=== PATIENT | female | born 1950 | race Caucasian/White ===

== ENCOUNTER 2017-04-03 13:14 | Day surgery (SDC) | payer BC ==
[~2017-04-03 13:14] MED LIST: Lactated Ringers 1,000 ML IV SCH; Midazolam 1 MG/ML 2 ML SDV ONE; Propofol 200 MG/20 ML SDV ONE; Sodium Chloride 0.9% 10 ML Syringe FLUSH PRN; Sodium Chloride 0.9% 2.5 ML Syringe FLUSH PRN; fentaNYL 100 MCG/2 ML SDV ONE
--- NOTE | 2017-04-03 13:39 | PCM.PREANE ---
Preanesthetic Assessment - Anesthesia/Transfusion/Family Hx Anesthesia History: Prior Anesthesia Without Reaction Family History of Anesthesia Reaction: No Transfusion History: No Prior Transfusion(s) - Review of Systems General: No Symptoms Pulmonary: No Symptoms Cardiovascular: No Symptoms Gastrointestinal: No Symptoms Neurological: No Symptoms Other: Reports: None - Physical Assessment NPO Status Date: 04/02/17 (CL this am) Height: 1.61 m Weight: 96.162 kg ASA Class: 2 Mental Status: Alert & Oriented x3 Airway Class: Mallampati = 1 Dentition: Reports: Normal Dentition (veneers on all teeth maxillary and mandibular) ROM/Head Extension: Full Lungs: Clear to Auscultation, Normal Respiratory Effort Cardiovascular: Regular Rate, Regular Rhythm - Allergies Allergies/Adverse Reactions: Allergies Allergy/AdvReac Type Severity Reaction Status Date / Time Sulfa (Sulfonamide Allergy Swelling Verified 03/31/17 14:31 Antibiotics) - Anesthesia Plan Pre-Op Medication Ordered: None - Acknowledgements Anesthesia Type Planned: MAC Pt an Appropriate Candidate for the Planned Anesthesia: Yes Alternatives and Risks of Anesthesia Discussed w Pt/Guardian: Yes Pt/Guardian Understands and Agrees with Anesthesia Plan: Yes PreAnesthesia Questionnaire HEENT History: Reports: Allergic Rhinitis, Cataract, Retinal Detachment Cardiovascular History: Reports: Blood Clots/VTE/DVT, High Cholesterol, Hypertension Other Cardiovascular History: blood clot to rt leg in 1982 Respiratory History: Reports: Sleep Apnea Gastrointestinal History: Reports: GERD Genitourinary History: Reports: None 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: Reports: Endometriosis Musculoskeletal History: Reports: Arthritis, Back Pain, Chronic, Fracture Other Musculoskeletal History: hx fx ankle Neurological History: Reports: None Psychiatric History: Reports: Anxiety, Depression Endocrine/Metabolic History: Reports: Hypothyroidism, Obesity/BMI 30+ Hematologic History: Reports: None Immunologic History: Reports: None Oncologic (Cancer) History: Reports: Thyroid - Infectious Disease History Infectious Disease History: Reports: Chicken Pox, Influenza, Measles, Mumps - Past Surgical History Head Surgeries/Procedures: Reports: None HEENT Surgical History: Reports: Adenoidectomy, Naso-Sinus Surgery, Tonsillectomy Other HEENT Surgeries/Procedures: repair of retinal detachment GI Surgical History: Reports: Cholecystectomy, Colonoscopy, Polypectomy Female Surgical History: Reports: None Endocrine Surgical History: Reports: Thyroidectomy Neurological Surgical History: Reports: Lumbar Spine Other Neurological Surgeries/Procedures: hx spinal arthrodesis Other Musculoskeletal Surgeries/Procedures:: spinal surg. - SUBSTANCE USE Smoking Status *Q: Never Smoker Recreational Drug Use History: No - HOME MEDS Home Medications: Home Meds Cetirizine HCl [Zyrtec] 1 tab PO DAILY 11/06/15 [History] FLUoxetine [PROzac] 1 tab PO DAILY 11/06/15 [History] Krill/Om-3/DHA/EPA/Phospho/Ast [Krill Oil 500 mg Softgel] 1 tab PO DAILY [History] Levothyroxine Sodium [Synthroid] 100 mcg PO DAILY 11/06/15 [History] Triamterene/Hydrochlorothiazid [Triamterene-HCTZ 37.5-25 MG] 1 tab PO DAILY 03/13 [History] Ubidecarenone [COQ-10] 100 mg PO DAILY 11/06/15 [History] Cholecalciferol (Vitamin D3) [Vitamin D3] 1,000 units PO DAILY 03/31/17 [History ] Estradiol [Estring] 1 device VAG ASDIRECTED 03/31/17 [History] Fluticasone Propionate [Flonase Allergy Relief] 1 spray NASBOTH ASDIRECTED PRN 03/31/17 [History] Lansoprazole [Prevacid] 30 mg PO DAILY 03/31/17 [History] Lutein/Minerals/Vit A,C & E [Ocuvite] 1 tab PO DAILY 03/31/17 [History] amLODIPine [Norvasc] 5 mg PO DAILY 03/31/17 [History] - CURRENT (IN HOUSE) MEDS Current Meds: Current Medications Lactated Ringer's (Ringers, Lactated) 1,000 mls @ 125 mls/hr IV ASDIRECTED [place] Sodium Chloride (Saline Flush) 10 ml FLUSH ASDIRECTED PRN PRN Reason: Keep Vein Open Sodium Chloride (Saline Flush) 2.5 ml FLUSH ASDIRECTED PRN PRN Reason: Keep Vein Open Sodium Chloride (Saline Flush) 10 ml FLUSH ASDIRECTED PRN PRN Reason: Keep Vein Open Sodium Chloride (Saline Flush) 2.5 ml FLUSH ASDIRECTED PRN PRN Reason: Keep Vein Open Discontinued Medications Fentanyl (Sublimaze) Confirm Administered Dose 100 mcg .ROUTE .STK-MED ONE Stop: 04/03/17 08:24 Midazolam HCl (Versed 1 Mg/Ml) Confirm Administered Dose 2 mg .ROUTE .STK-MED ONE Stop: 04/03/17 08:24 Propofol (Diprivan 20 Ml) Confirm Administered Dose 200 mg .ROUTE .STK-MED ONE Stop: 04/03/17 08:24
[2017-04-03] MEDS ORDERED: Propofol 200 MG/20 ML SDV ONE (13:59)
--- NOTE | 2017-04-03 14:24 | PCM.OPNOTE ---
- General Post-Op/Procedure Note Date of Surgery/Procedure: 04/03/17 Operative Procedure(s): Screening colonoscopy Findings: Diverticulosis, grade 1 hemorrhoids Pre Op Diagnosis: History of colon polyp Post-Op Diagnosis: Diverticulosis, grade 1 hemorrhoids Anesthesia Technique: ALIICA Primary Surgeon: Mary Avalos Condition: Good Free Text/Narrative:: Intake & Output 04/02/17 04/03/17 04/03/17 22:59 06:59 14:59 Intake Total 550 Balance 550
[2017-04-03 15:20] VITALS: BP 138/79
--- NOTE | 2017-04-03 15:23 | PCM48HPAN ---
Post Anesthesia Note - EVALUATION WITHIN 48HRS OF ANESTHETIC Vital Signs in Normal Range: Yes Patient Participated in Evaluation: Yes Respiratory Function Stable: Yes Airway Patent: Yes Cardiovascular Function Stable: Yes Hydration Status Stable: Yes Pain Control Satisfactory: Yes Nausea and Vomiting Control Satisfactory: Yes Mental Status Recovered: Yes
--- NOTE | 2017-04-03 15:23 | PCM.POSTAN ---
POST ANESTHESIA ASSESSMENT - MENTAL STATUS Mental Status: Alert, Oriented - RESPIRATORY Respiratory Status: Respiratory Rate WNL, Airway Patent, O2 Saturation Stable - CARDIOVASCULAR CV Status: Pulse Rate WNL, Blood Pressure Stable - GASTROINTESTINAL GI Status: No Symptoms - POST OP HYDRATION Hydration Status: Adequate & Stable
--- NOTE | 2017-04-03 18:58 | OR ---
SURGEON: MARY AVALOS MD DATE OF PROCEDURE: 04/03/2017 PREOPERATIVE DIAGNOSIS: Screening colonoscopy, history of colon polyps. POSTOPERATIVE DIAGNOSIS: Diverticulosis, grade 1 hemorrhoids. PROCEDURE PERFORMED: Colonoscopy. ENDOSCOPIST: Mary Avalos MD. INSTRUMENT USED: Olympus colonoscope. EXTENT OF EXAM: To the cecum. ANESTHESIA: MAC. PREPARATION: Good. LIMITATIONS: None. INDICATION FOR EXAMINATION: The patient is a 66-year-old female, who had a colonoscopy performed 5 years ago. She was found to have 2 small tubular adenomas. She is here for a repeat colonoscopy. The patient and I discussed the procedure, expected perioperative course, and risks including bleeding, infection, or perforation. The patient verbalized understanding and wishes to proceed. PROCEDURE IN DETAIL: The patient was brought into the endoscopy suite and placed in a left lateral decubitus position. A time-out was completed verifying the patient's name, age, date of , allergies, and procedure to be performed. Monitored anesthesia care was induced and continuous oxygen was provided via nasal cannula. After adequate sedation was achieved, a digital rectal exam was performed. This exam was within normal limits. A well lubricated colonoscope was inserted into the rectum and advanced under direct visualization to the level of the cecum. The cecum was identified by both visual and anatomic landmarks. A photograph was taken of the cecal cap. The scope was then fully withdrawn while examining the color, texture, anatomy, and integrity of the mucosa from the cecum to the anal canal. The patient was noted to have diverticulosis. The scope was then brought into the rectum and retroflexed to allow visualization of the anal canal opening. The patient was found to have grade 1 internal hemorrhoids. A photograph was taken. The scope was then straightened out and removed from the patient. The cecum to anus time was 8 minutes. The patient tolerated the procedure well and was taken to PACU in stable condition. ENDOSCOPIC DIAGNOSES: 1. Diverticulosis. 2. Grade 1 hemorrhoids. RECOMMENDATIONS: Follow up in clinic in 2 weeks. CHRIS MARSHALL /[id number]
== END 2017-04-03 14:40 | disposition home or self-care (01) ==
LOC: MW.SDS 13:14
PROVIDERS: ATTEND Surgery
DX: Z12.11 Encounter for screening for malignant neoplasm of colon (principal); F32.9 Major depressive disorder, single episode, unspecified; E78.00 Pure hypercholesterolemia, unspecified; I10 Essential (primary) hypertension; K21.9 Gastro-esophageal reflux disease without esophagitis; M19.90 Unspecified osteoarthritis, unspecified site; E89.0 Postprocedural hypothyroidism; E66.9 Obesity, unspecified; H26.9 Unspecified cataract; K57.30 Diverticulosis of large intestine without perforation or abscess without bleeding; K64.0 First degree hemorrhoids; Z86.010 Personal history of colon polyps; Z88.2 Allergy status to sulfonamides; Z79.899 Other long term (current) drug therapy; Z86.718 Personal history of other venous thrombosis and embolism; Z85.850 Personal history of malignant neoplasm of thyroid; Z90.49 Acquired absence of other specified parts of digestive tract; Z90.89 Acquired absence of other organs; Z98.890 Other specified postprocedural states; Z68.30 Body mass index [BMI] 30.0-30.9, adult; Z98.1 Arthrodesis status
CPT/HCPCS: 45378; J2250; J3010; J7120; 00810; J2704

== ENCOUNTER 2017-10-14 06:48 | Emergency (ER) | payer MEDICARE, OTHER ==
[2017-10-14] MEDS ORDERED: Sodium Chloride 0.9% 2.5 ML Syringe FLUSH PRN (07:27)
[2017-10-14] MEDS ORDERED: Sodium Chloride 0.9% 10 ML Syringe FLUSH PRN (07:27)
--- NOTE | 2017-10-14 07:32 | EDM.PDOC ---
ED HPI GENERAL MEDICAL PROBLEM - General Chief Complaint: Upper Extremity Injury/Pain Stated Complaint: RIGHT ARM IS NUMBNESS Time Seen by Provider: 10/14/17 07:20 - History of Present Illness INITIAL COMMENTS - FREE TEXT/NARRATIVE: HISTORY AND PHYSICAL: History of present illness: The patient is a 67-year-old female who follows with Dr. Tuan Benoit at [facility], and who saw him on September 29 for routine physical which she said was within normal limits, and has a history of hypertension hypercholesterolemia and hypothyroidism, and presents with complaints of right upper extremity numbness and pain that has been ongoing for the last 1 week. Patient says she has been doing a lot more activity, cleaning a motor home, over the last 1 week and each morning she has been awakening to discomfort in her right upper extremity which is the entire extremity and tingling and numbness. She says she doesn't feel weak but there is pain to the arm and normally will go away quickly but today it lasted 1 hour so she came in for evaluation. On my evaluation she says it is improving and it is almost gone at this point. Patient says she notes some swelling when she wakes up but it is not significant and there is no color changes. The patient denies any chest pain shortness of breath abdominal pain nausea vomiting headache or neck pain. The patient says she has a history of "bulging disks in her neck" which have not caused her any discomfort nor has she had any treatment for them recently. The patient is right-hand dominant. She has had no recent trauma to her neck or upper extremity. She says that her right shoulder has been sore after she has been doing this cleaning work but the numbness tingling and discomfort is only in the mornings and improves as the morning progresses. As the symptoms started after she saw Dr. Vaughan she did not discuss them with him. The patient otherwise has been eating and drinking normally and has no other systemic complaints. Again the patient says the symptoms are improving and arm was completely gone when I see her. Patient tells me she Completely has no symptoms on the left upper extremity and no symptoms on her face trunk or lower extremities. Review of systems: As per history of present illness and below otherwise all systems reviewed and negative. Past medical history: As per history of present illness and as reviewed below otherwise noncontributory. Surgical history: As per history of present illness and as reviewed below otherwise noncontributory. Social history: No reported history of drug or alcohol abuse. Family history: As per history of present illness and as reviewed below otherwise noncontributory. Physical exam: General: Well-developed well-nourished mildly overweight female who is nontoxic and speaking clearly and easily in the ED. HEENT: Atraumatic, normocephalic, pupils reactive, negative for conjunctival pallor or scleral icterus, mucous membranes moist, throat clear, neck supple, nontender, trachea midline. There are no midline step-offs tenderness defects of the cervical spine and no reproducible muscular tenderness on palpation of the neck musculature or posterior shoulder. Lungs: Clear to auscultation, breath sounds equal bilaterally, chest nontender. Heart: S1S2, regular, negative for clicks, rubs, or JVD. Abdomen: Soft, nondistended, nontender. Negative for masses or hepatosplenomegaly. Negative for costovertebral tenderness. Pelvis: Stable nontender. Genitourinary: Deferred. Rectal: Deferred. Extremities: Atraumatic, negative for cords or calf pain. Neurovascular unremarkable. There is full range of motion of the right upper extremity but there is discomfort with palpation of the trigger point and with engagement of the shoulder joint which she says reproduces discomfort. There is no swelling noted in the right upper extremity and all compartments are soft. There are no color changes no rashes no lesions and pulses are strong in the radial and ulnar pulses bilaterally with palpation. Cap refill is normal. Neuro: Awake, alert, oriented. Cranial nerves II through XII unremarkable. Cerebellum unremarkable. Motor and sensory unremarkable throughout. Exam nonfocal. Diagnostics: EKG CBC CMP magnesium level CT scan of the head and cervical spine, arterial Doppler ultrasound right upper extremity Therapeutics: Toradol 0935: Case was discussed with Dr. Tuan Benoit who agrees that I will give the patient a prescription for an outpatient MRI of the C-spine and he can follow those test results up. I will also give the patient diclofenac for pain as well as a Medrol Dosepak. I will give her strict advice on following up with Dr. Vaughan as well as reasons to return to the ED and need to schedule the MRI. The patient is aware of all testing results and care plan for outpatient MRI and Medrol Dosepak with diclofenac. Impression: Episodic right upper extremity pain and paresthesia, improving Definitive disposition and diagnosis as appropriate pending reevaluation and review of above. right arm Pain Score (Numeric/FACES): 9 - Related Data Allergies Allergy/AdvReac Type Severity Reaction Status Date / Time Sulfa (Sulfonamide Allergy Anaphylactic Verified 10/14/17 06:53 Antibiotics) Shock Home Meds: Home Meds FLUoxetine HCl [Fluoxetine] 1 tab PO DAILY 10/14/17 [History] Lansoprazole [Heartburn Treatment 24 Hour] 1 cap PO DAILY 10/14/17 [History] Lansoprazole [Prevacid] 1 cap PO DAILY 10/14/17 [History] Levothyroxine Sodium [Synthroid] 100 mg PO DAILY 10/14/17 [History] Rosuvastatin [Crestor] 1 mg PO DAILY 10/14/17 [History] Triamterene/Hydrochlorothiazid [Triamterene-HCTZ 37.5-25 MG] 1 cap PO DAILY [History] amLODIPine Besylate [Norvasc] 5 mg PO DAILY 10/14/17 [History] amLODIPine [Norvasc] 5 mg PO DAILY 10/14/17 [History] Past Medical History HEENT History: Reports: None Cardiovascular History: Reports: High Cholesterol, Hypertension Respiratory History: Reports: None Gastrointestinal History: Reports: None Genitourinary History: Reports: None 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 Musculoskeletal History: Reports: None Neurological History: Reports: None Psychiatric History: Reports: None Endocrine/Metabolic History: Reports: Other (See Below) Other Endocrine/Metabolic History: thyroid cancer Hematologic History: Reports: None Immunologic History: Reports: None Oncologic (Cancer) History: Reports: Thyroid Dermatologic History: Reports: None - Infectious Disease History Infectious Disease History: Reports: Chicken Pox, Mumps - Past Surgical History Head Surgeries/Procedures: Reports: None HEENT Surgical History: Reports: None Cardiovascular Surgical History: Reports: None Respiratory Surgical History: Reports: None GI Surgical History: Reports: None Female Surgical History: Reports: None Endocrine Surgical History: Reports: Thyroidectomy Neurological Surgical History: Reports: None Musculoskeletal Surgical History: Reports: None Oncologic Surgical History: Reports: None Dermatological Surgical History: Reports: None Social & Family History - Family History Family Medical History: Noncontributory - Tobacco Use Smoking Status *Q: Never Smoker Second Hand Smoke Exposure: No - Caffeine Use Caffeine Use: Reports: Coffee, Soda, Tea - Recreational Drug Use Recreational Drug Use: No Review of Systems - Review of Systems Review Of Systems: ROS reveals no pertinent complaints other than HPI. ED EXAM, GENERAL - Physical Exam Exam: See Below (See dictation) Course - Vital Signs Last Recorded V/S: Last Vital Signs Temp 36.0 C 10/14/17 06:57 Pulse 69 10/14/17 09:49 Resp 18 10/14/17 09:49 BP 135/85 10/14/17 09:49 Pulse Ox 98 10/14/17 09:49 - Orders/Labs/Meds Orders: Active Orders 24 hr Category Date Time Status Cardiac Monitoring [RC] . DIRECTED Care 10/14/17 07:27 Active EKG Documentation Completion [RC] STAT Care 10/14/17 07:27 Active Oxygen Therapy, ED [RC] ASDIRECTED Care 10/14/17 07:27 Active Pulse Oximetry [RC] ASDIRECTED Care 10/14/17 07:27 Active Sodium Chloride 0.9% [Saline Flush] Med 10/14/17 07:27 Active 10 ml FLUSH ASDIRECTED PRN Sodium Chloride 0.9% [Saline Flush] Med 10/14/17 07:27 Active 2.5 ml FLUSH ASDIRECTED PRN Saline Lock Insert [OM.PC] Stat Oth 10/14/17 07:27 Ordered Medication Orders Sodium Chloride (Saline Flush) 10 ml FLUSH ASDIRECTED PRN PRN Reason: Keep Vein Open Sodium Chloride (Saline Flush) 2.5 ml FLUSH ASDIRECTED PRN PRN Reason: Keep Vein Open Labs: Laboratory Tests 10/14/17 10/14/17 Range/Units 06:58 06:58 WBC 6.33 (4.0-11.0) K/uL RBC 4.09 L (4.30-5.90) M/uL Hgb 12.1 (12.0-16.0) g/dL Hct 35.6 L (36.0-46.0) % MCV 87.0 (80.0-98.0) fL MCH 29.6 (27.0-32.0) pg MCHC 34.0 (31.0-37.0) g/dL RDW Std Deviation 44.1 (28.0-62.0) fl RDW Coeff of Roman 14 (11.0-15.0) % Plt Count 228 (150-400) K/uL MPV 9.80 (7.40-12.00) fL Neut % (Auto) 29.6 L (48.0-80.0) % Lymph % (Auto) 58.9 H (16.0-40.0) % [place] % (Auto) 7.3 (0.0-15.0) % Eos % (Auto) 3.6 (0.0-7.0) % Baso % (Auto) 0.6 (0.0-1.5) % Neut # (Auto) 1.9 (1.4-5.7) K/uL Lymph # (Auto) 3.7 H (0.6-2.4) K/uL [place] # (Auto) 0.5 (0.0-0.8) K/uL Eos # (Auto) 0.2 (0.0-0.7) K/uL Baso # (Auto) 0.0 (0.0-0.1) K/uL Nucleated RBC % 0.0 /100WBC Nucleated RBCs # 0 K/uL Sodium 141 (136-145) mmol/L Potassium 3.2 L (3.5-5.1) mmol/L Chloride 105 (98-107) mmol/L Carbon Dioxide 25.3 (21.0-32.0) mmol/L BUN 19 H (7.0-18.0) mg/dL Creatinine 1.1 H (0.6-1.0) mg/dL Est Cr Clr Drug Dosing 42.18 mL/min Estimated GFR (MDRD) 49.8 ml/min Glucose 134 H (74-106) mg/dL Calcium 8.6 (8.5-10.1) mg/dL Magnesium 2.0 (1.8-2.4) mg/dL Total Bilirubin 0.5 (0.2-1.0) mg/dL AST 46 H (15-37) IU/L ALT 37 (14-63) IU/L Alkaline Phosphatase 99 (46-116) U/L Total Protein 7.0 (6.4-8.2) g/dL Albumin 3.7 (3.4-5.0) g/dL Globulin 3.3 (2.0-3.5) g/dL Albumin/Globulin Ratio 1.1 L (1.3-2.8) Meds: Medications Generic Name Dose Route Start Last Admin Trade Name Freq PRN Reason Stop Dose Admin Sodium Chloride 10 ml 10/14/17 07:27 Saline Flush FLUSH ASDIRECTED PRN Keep Vein Open Sodium Chloride 2.5 ml 10/14/17 07:27 Saline Flush FLUSH ASDIRECTED PRN Keep Vein Open Discontinued Medications Generic Name Dose Route Start Last Admin Trade Name Freq PRN Reason Stop Dose Admin Ketorolac Tromethamine 30 mg 10/14/17 08:22 10/14/17 08:35 Toradol IVPUSH 10/14/17 08:23 30 mg ONETIME ONE Administration Departure - Departure Time of Disposition: 09:59 Disposition: Home, Self-Care 01 Condition: Good Clinical Impression: Paresthesia and pain of right extremity - Discharge Information Forms: ED Department Discharge Additional Instructions: The following information is given to patients seen in the emergency department who are being discharged to home. This information is to outline your options for follow-up care. We provide all patients seen in our emergency department with a follow-up referral. The need for follow-up, as well as the timing and circumstances, are variable depending upon the specifics of your emergency department visit. If you don't have a primary care physician on staff, we will provide you with a referral. We always advise you to contact your personal physician following an emergency department visit to inform them of the circumstance of the visit and for follow-up with them and/or the need for any referrals to a consulting specialist. The emergency department will also refer you to a specialist when appropriate. This referral assures that you have the opportunity for followup care with a specialist. All of these measure are taken in an effort to provide you with optimal care, which includes your followup. Under all circumstances we always encourage you to contact your private physician who remains a resource for coordinating your care. When calling for followup care, please make the office aware that this follow-up is from your recent emergency room visit. If for any reason you are refused follow-up, please contact the [facility] emergency department at and ask to speak to the emergency department charge nurse. [address] [place] [address] Please take all medications as prescribed and call and schedule a follow-up appointment with Dr. Tuan Vaughan as we discussed. Upon your discharge from the ED please go to MRI scheduling and set up your outpatient MRI as we discussed. Return to ER as needed and as discussed. Please try to do all activities with the right upper extremity more slowly and try to reduce the strenuous work that you have been doing. - My Orders Last 24 Hours: My Active Orders 10/14/17 07:27 Cardiac Monitoring [RC] . DIRECTED EKG Documentation Completion [RC] STAT Oxygen Therapy, ED [RC] ASDIRECTED Pulse Oximetry [RC] ASDIRECTED Sodium Chloride 0.9% [Saline Flush] 10 ml FLUSH ASDIRECTED PRN Sodium Chloride 0.9% [Saline Flush] 2.5 ml FLUSH ASDIRECTED PRN Saline Lock Insert [OM.PC] Stat - Assessment/Plan Last 24 Hours: My Active Orders 10/14/17 07:27 Cardiac Monitoring [RC] . DIRECTED EKG Documentation Completion [RC] STAT Oxygen Therapy, ED [RC] ASDIRECTED Pulse Oximetry [RC] ASDIRECTED Sodium Chloride 0.9% [Saline Flush] 10 ml FLUSH ASDIRECTED PRN Sodium Chloride 0.9% [Saline Flush] 2.5 ml FLUSH ASDIRECTED PRN Saline Lock Insert [OM.PC] Stat
[2017-10-14] MEDS ORDERED: Ketorolac 30 MG/ML SDV IVPUSH ONE (08:22)
--- NOTE | 2017-10-14 09:46 | US ---
EXAMINATION: Right upper extremity arterial duplex ultrasound HISTORY: Pain and numbness COMPARISON: None TECHNIQUE: Grayscale, color Doppler and spectral Doppler imaging obtained of the right upper extremit y. FINDINGS: Normal triphasic waveforms noted within the right subclavian, axillary, brachial, radial, a nd ulnar arteries. No significant narrowing or atheromatous changes demonstrated. No parvus tardus wa veforms. IMPRESSION: 1. Normal right upper extremity arterial duplex ultrasound.
[2017-10-14 09:51] VITALS: BP 135/85
--- NOTE | 2017-10-14 09:53 | CT ---
EXAM DATE: 10/14/17 PATIENT'S AGE: 67 Patient: DANIELA LUGO Facility: [place], [place] Site . Site : 1950 Study: CT Spine Cervical [id number]/19/2018 8:01:46 AM Ordering Physician: Ary Phelps Final Report: INDICATION: Left arm numbness and tingling. TECHNIQUE: Axial CT of the cervical spine with coronal and sagittal reconstructed images. Bone and soft tissue algorithms utilized. FINDINGS: There are 7 cervical vertebral bodies normally aligned. No fractures. No prevertebral soft tissue swelling. Mild spurring C4, C5, and C6. No central canal stenosis. No definite disc herniation. Included soft tissues of the neck are negative for lymphadenopathy. The skullbase is within normal limits. The included lung apices are clear. IMPRESSION: Negative cervical spine CT. Please note that all CT scans at this facility use dose modulation, iterative reconstruction, and/or weight-based dosing when appropriate to reduce radiation dose to as low as reasonably achievable. Dictated by Ray Kruse MD @ Oct 14 2017 8:15AM (Electronic Signature) Report Signed by Proxy. [facility]OSPITALJesse
--- NOTE | 2017-10-14 09:54 | CT ---
EXAM DATE: 10/14/17 PATIENT'S AGE: 67 Patient: DANIELA LUGO Facility: [place], [place] Site . Site : 1950 Study: CT Head [id number]/19/2018 8:02:05 AM Ordering Physician: Ary Phelps Final Report: INDICATION: Left arm numbness and tingling. TECHNIQUE: Noncontrast head CT. COMPARISON: None. FINDINGS: No intracranial hemorrhage, hydrocephalus, mass effect, or shift of midline structures. No evidence for ischemic change or infarction. No significant cerebral or cerebellar atrophy. The included calvarium and skull base are negative for acute fractures. The included paranasal sinuses and mastoid air cells are clear. IMPRESSION: Negative noncontrast head CT. Please note that all CT scans at this facility use dose modulation, iterative reconstruction, and/or weight-based dosing when appropriate to reduce radiation dose to as low as reasonably achievable. Dictated by Ray Kruse MD @ Oct 14 2017 8:11AM (Electronic Signature) Report Signed by Proxy. [facility]
== END 2017-10-14 10:10 | disposition home or self-care (01) ==
LOC: MW.ED 06:48 → MERGE 06:48 → MW.ED 10:10
DX: R20.2 Paresthesia of skin (principal); M79.621 Pain in right upper arm; I10 Essential (primary) hypertension; E78.00 Pure hypercholesterolemia, unspecified; E03.9 Hypothyroidism, unspecified; Z79.899 Other long term (current) drug therapy; Z88.2 Allergy status to sulfonamides
CPT/HCPCS: 36415; 70450; 72125; 80053; 83735; 85025; 93005; 93931; 96374; 99284; J1885

== ENCOUNTER 2020-07-13 14:48 | Emergency (ER) | payer MEDICARE, OTHER ==
--- NOTE | 2020-07-13 14:53 | EDM.PDOC ---
ED HPI GENERAL MEDICAL PROBLEM - General Stated Complaint: POSSIBLE BLOOD CLOT Time Seen by Provider: 07/13/20 14:49 Source of Information: Reports: Patient History Limitations: Reports: No Limitations - History of Present Illness INITIAL COMMENTS - FREE TEXT/NARRATIVE: HISTORY AND PHYSICAL: History of present illness: Patient is a 69-year-old female who presents to the emergency room with complaints of posterior right upper calf pain. Patient states that few days ago her left leg had given out resulting in her falling on her right hip. Since the fall she has had pain to her posterior knee/proximal calf which feels similar to a previous DVT several years ago. She is not currently on any blood thinners. She states she has a history of low back pain with sciatica to the right hip (ongoing for years). She has done surgery, injections, and Celebrex. States since her fall the calf pain is new and the hip pain is more lateral and glute. She denies hitting her head or having any LOC. Denies any other extremity involvement. She has been ambulatory without any weakness, numbness, tingling or deficits. Patient denies any fever, chills, headache, change in vision, syncope or near syncope. Denies any chest pain, back pain, shortness of breath or cough. Denies any GI or symptoms. Patient has been eating and drinking appropriately. Review of systems: As per history of present illness and below otherwise all systems reviewed and negative. Past medical history: As per history of present illness and as reviewed below otherwise noncontributory. Surgical history: As per history of present illness and as reviewed below otherwise noncontributory. Social history: See social history for further information Family history: As per history of present illness and as reviewed below otherwise noncontributory. Physical exam: General: Well developed and well nourished 69 year old female. Alert and orientated x 3. Nontoxic in appearance and in no acute distress. Vital signs are stable and have been reviewed by me. Nursing notes were reviewed. HEENT: Atraumatic, normocephalic, pupils equal and reactive bilaterally, negative for conjunctival pallor or scleral icterus, mucous membranes moist, trachea midline. No drooling or trismus noted. No meningeal signs. No hot potato voice noted. Lungs: Clear to auscultation bilaterally. No wheezes, rales, or rhonchi. Chest nontender. Normal work of breathing, no accessory muscles used. Heart: S1S2, regular rate and rhythm without overt murmur, gallops, or rubs. No JVD. No peripheral edema Abdomen: Soft, nondistended, nontender. Normoactive bowel sounds. Negative for masses or costovertebral tenderness. Skin: Intact, warm, dry. No lesions or rashes noted. Hematologic: No petechiae or purpra. Mucosa appropriate color and normal nail bed color and refill. Extremities: Ambulatory, moves all extremities per self without difficulty or deficits, mild right proximal calf tenderness with palpation (no redness or swelling noted). Strong pedal and pretibial pulses bilaterally. Neurovascular unremarkable. Neuro: Awake, alert, oriented. Cranial nerves II through XII unremarkable. Cerebellum unremarkable. Motor and sensory unremarkable throughout. Exam nonfocal. Psychiatric: Mood and affect are appropriate. Normal thought process. Answering questions appropriately. Notes: *This patient was seen and evaluated during the 2019 SARS-CoV-2 novel coronavirus pandemic period. Community viral transmission is ongoing at time of this encounter and the emergency department is operating under pandemic response procedures. Lab work shows slightly elevated BUN/Creat, which have chronically been elevated. No other concerning labs. X-ray is limited due to patient related soft tissue attenuation factors. Demineralization and degenerative change of both hip joints and the lower lumbar spine. Within the limitations of this study, I see no obvious fracture, dislocation or destructive process. Ultrasound of the venous drainage of the right lower extremity shows no evidence of deep venous thrombosis. There is normal antegrade flow from the posterior tibial and peroneal veins superiorly through the common femoral vein. There is normal augmentation and compressibility of these veins. The left common femoral vein is widely patent. I have talked with the patient about today's findings, in addition to providing specific details for plan of care. Reassessment at the time of disposition demonstrates that the patient is in no acute distress. The patient is stable for discharge, counseling was provided and we discussed in great detail signs and symptoms that would prompt them to return to the Emergency Department. Medication, follow up and supportive care measures were reviewed and discussed. Voices understanding and is agreeable to plan of care. Denies any further questions or concerns at this time. Diagnostics: CBC, CMP, INR, U/S Therapeutics: None Prescription: None Impression: Fall Muscular Strain, left leg Plan: 1. You were evaluated today on an emergent basis. Your lab work, x-ray, and ultrasound are within normal limits. 2. You can alternate Tylenol and ibuprofen as needed for pain and fever management. 3. We encourage you to follow up with your primary care provider and/or orthopedist in the next few days for re-evaluation and further care/management. 4. If your symptoms should worsen, new symptoms develop or any of the signs and symptoms we discussed should arise please return to the emergency room or call 911 (if needed). Definitive disposition and diagnosis as appropriate pending reevaluation and review of above. Right leg Pain Score (Numeric/FACES): 3 - Related Data Allergies Allergy/AdvReac Type Severity Reaction Status Date / Time Sulfa (Sulfonamide Allergy Swelling Verified 07/13/20 15:08 Antibiotics) Home Meds: Home Meds Celecoxib 200 mg PO DAILY 04/16/18 [History] Cetirizine [ZyrTEC] 10 mg PO DAILY 04/16/18 [History] Cholecalciferol (Vitamin D3) [Vitamin D3] 2,000 unit PO BEDTIME 04/16/18 [History] FLUoxetine HCl [Fluoxetine HCl] 20 mg PO DAILY 04/16/18 [History] Krill/Om-3/DHA/EPA/Phospho/Ast [Megared [place]-3 Krill Oil Sfgl] 1 each PO BEDTIME 04/16/18 [History] Lansoprazole [Prevacid] 30 mg PO DAILY 04/16/18 [History] Levothyroxine [Synthroid] 100 mcg IVPUSH DAILY 04/16/18 [History] Loteprednol Etabonate [Lotemax] 15 ml OP DAILY 04/16/18 [History] Lutein/Minerals/Vit A,C & E [Ocuvite] 1 tab PO BEDTIME 04/16/18 [History] Pravastatin [Pravachol] 20 mg PO BEDTIME 04/16/18 [History] Propylene Glycol/PEG 400/Pf [Systane 0.3-0.4% Eye Drops] 1 each OP ASDIRECTED 04/16/18 [History] Scopolamine [Transderm-Scop] 1 each TD ASDIRECTED 04/16/18 [History] Triamterene/Hydrochlorothiazid [Triamterene-HCTZ 37.5-25 MG] 1 each PO DAILY 04/16/18 [History] Ubidecarenone [Coq-10] 200 mg PO BEDTIME 04/16/18 [History] amLODIPine Besylate [Amlodipine Besylate] 5 mg PO DAILY 04/16/18 [History] carisoprodoL [Carisoprodol] 350 mg PO TID PRN 07/13/20 [History] Past Medical History HEENT History: Reports: Allergic Rhinitis, Cataract, None, Retinal Detachment Cardiovascular History: Reports: Blood Clots/VTE/DVT, High Cholesterol, Hypertension Other Cardiovascular History: blood clot to rt leg in 1982 Respiratory History: Reports: None, Sleep Apnea Gastrointestinal History: Reports: GERD, None Genitourinary History: Reports: None 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 History: Reports: Endometriosis, None Musculoskeletal History: Reports: Arthritis, Back Pain, Chronic, Fracture, None Other Musculoskeletal History: hx fx ankle Neurological History: Reports: None Psychiatric History: Reports: Anxiety, Depression, None Endocrine/Metabolic History: Reports: Hypothyroidism, Other (See Below), Obesity/BMI 30+ Other Endocrine/Metabolic History: thyroid cancer Hematologic History: Reports: None Immunologic History: Reports: None Oncologic (Cancer) History: Reports: Thyroid Dermatologic History: Reports: None - Infectious Disease History Infectious Disease History: Reports: Chicken Pox, Influenza, Measles, Mumps - Past Surgical History HEENT Surgical History: Reports: Adenoidectomy, None, Naso-Sinus Surgery, Tonsillectomy Cardiovascular Surgical History: Reports: None Respiratory Surgical History: Reports: None GI Surgical History: Reports: Cholecystectomy, Colonoscopy, None, Polypectomy Neurological Surgical History: Reports: Lumbar Spine, None Musculoskeletal Surgical History: Reports: None Oncologic Surgical History: Reports: None Dermatological Surgical History: Reports: None Social & Family History - Family History Family Medical History: No Pertinent Family History - Caffeine Use Caffeine Use: Reports: Coffee, Soda, Tea Review of Systems - Review of Systems Review Of Systems: Comprehensive ROS is negative, except as noted in HPI. ED EXAM, GENERAL - Physical Exam Exam: See Below (See dictation) Course - Vital Signs Last Recorded V/S: Last Vital Signs Temp 96.8 F L 07/13/20 15:08 Pulse 101 H 07/13/20 15:08 Resp 17 07/13/20 15:08 BP 137/70 07/13/20 15:08 Pulse Ox 95 07/13/20 15:08 - Orders/Labs/Meds Labs: Laboratory Tests 07/13/20 07/13/20 07/13/20 Range/Units 15:10 15:10 15:10 WBC 7.07 (4.0-11.0) K/uL RBC 4.67 (4.30-5.90) M/uL Hgb 12.2 (12.0-16.0) g/dL Hct 38.7 (36.0-46.0) % MCV 82.9 (80.0-98.0) fL MCH 26.1 L (27.0-32.0) pg MCHC 31.5 (31.0-37.0) g/dL RDW Std Deviation 54.3 (28.0-62.0) fl RDW Coeff of Roman 18 H (11.0-15.0) % Plt Count 258 (150-400) K/uL MPV 10.20 (7.40-12.00) fL Neut % (Auto) 50.8 (48.0-80.0) % Lymph % (Auto) 36.4 (16.0-40.0) % Caroline % (Auto) 9.8 (0.0-15.0) % Eos % (Auto) 2.7 (0.0-7.0) % Baso % (Auto) 0.3 (0.0-1.5) % Neut # (Auto) 3.6 (1.4-5.7) K/uL Lymph # (Auto) 2.6 H (0.6-2.4) K/uL Caroline # (Auto) 0.7 (0.0-0.8) K/uL Eos # (Auto) 0.2 (0.0-0.7) K/uL Baso # (Auto) 0.0 (0.0-0.1) K/uL Nucleated RBC % 0.0 /100WBC Nucleated RBCs # 0 K/uL INR 1.01 Sodium 142 (136-145) mmol/L Potassium 3.8 (3.5-5.1) mmol/L Chloride 104 (98-107) mmol/L Carbon Dioxide 27.3 (21.0-32.0) mmol/L BUN 21 H (7.0-18.0) mg/dL Creatinine 1.3 H (0.6-1.0) mg/dL Est Cr Clr Drug Dosing 34.74 mL/min Estimated GFR (MDRD) 40.9 ml/min Glucose 98 (74-106) mg/dL Calcium 8.7 (8.5-10.1) mg/dL Total Bilirubin 0.3 (0.2-1.0) mg/dL AST 46 H (15-37) IU/L ALT 34 (14-63) IU/L Alkaline Phosphatase 95 (46-116) U/L Total Protein 7.8 (6.4-8.2) g/dL Albumin 3.7 (3.4-5.0) g/dL Globulin 4.1 H (2.6-4.0) g/dL Albumin/Globulin Ratio 0.9 (0.9-1.6) Departure - Departure Time of Disposition: 16:26 Disposition: Home, Self-Care 01 Clinical Impression: Muscle strain Fall Qualifiers: Encounter type: initial encounter Qualified Code(s): W19.XXXA - Unspecified fall, initial encounter - Discharge Information Referrals: Ari Vaughan MD [Primary Care Provider] - Additional Instructions: The following information is given to patients seen in the emergency department who are being discharged to home. This information is to outline your options for follow-up care. We provide all patients seen in our emergency department with a follow-up referral. The need for follow-up, as well as the timing and circumstances, are variable depending upon the specifics of your emergency department visit. If you don't have a primary care physician on staff, we will provide you with a referral. We always advise you to contact your personal physician following an emergency department visit to inform them of the circumstance of the visit and for follow-up with them and/or the need for any referrals to a consulting specialist. The emergency department will also refer you to a specialist when appropriate. This referral assures that you have the opportunity for follow-up care with a specialist. All of these measure are taken in an effort to provide you with optimal care, which includes your follow-up. Under all circumstances we always encourage you to contact your private physician who remains a resource for coordinating your care. When calling for follow-up care, please make the office aware that this follow-up is from your recent emergency room visit. If for any reason you are refused follow-up, please contact the [facility] Emergency Department at and asked to speak to the emergency department charge nurse. [facility] [address] [place] [address] [facility] [address] [place] [id number] Thank you for choosing the [facility] emergency department in [place] for your medical needs today. It was a pleasure caring for you. Today you were seen in the emergency department for leg pain. 1. You were evaluated today on an emergent basis. Your lab work, x-ray, and ultrasound are within normal limits. 2. You can alternate Tylenol and ibuprofen as needed for pain and fever management. 3. We encourage you to follow up with your primary care provider and/or orthopedist in the next few days for re-evaluation and further care/management. 4. If your symptoms should worsen, new symptoms develop or any of the signs and symptoms we discussed should arise please return to the emergency room or call 911 (if needed). Sepsis Event Note (ED) - Focused Exam Vital Signs: Vital Signs Temp Pulse Resp BP Pulse Ox 07/13/20 15:08 96.8 F L 101 H 17 137/70 95
[2020-07-13 15:34] LABS: CARBON DIOXIDE,CO2 27.3 mmol/L (21.0-32.0); POTASSIUM,K 3.8 mmol/L (3.5-5.1)
--- NOTE | 2020-07-13 16:16 | US ---
INDICATION: None available COMPARISON: None available. FINDINGS: Ultrasound of the venous drainage of the right lower extremity shows no evidence of deep venous thrombosis. There is normal antegrade flow from the posterior tibial and peroneal veins superiorly through the common femoral vein. There is normal augmentation and compressibility of these veins. The left common femoral vein is widely patent. IMPRESSION: No evidence of deep venous thrombosis on ultrasound examination of the right lower extremity. Dictated by Grant Lao MD @ Jul 13 2020 4:12PM Signed by Dr. Grant Lao @ Jul 13 2020 4:15PM
--- NOTE | 2020-07-13 16:20 | CR ---
Indication: Trauma Technique: AP view of the pelvis and AP and lateral views of the right hip were acquired Comparison: A similar study dated October 26, 2019 Findings: The study is limited due to patient related soft tissue attenuation factors. Demineralization and degenerative change of both hip joints and the lower lumbar spine. Within the limitations of this study, I see no obvious fracture, dislocation or destructive process. Impression: Limited due to demineralization and soft tissue attenuation factors but no visible acute fracture, dislocation or destructive process. Degenerative changes of the spine and both hip joints. Dictated by Jorge Cooper MD @ Jul 13 2020 4:16PM Signed by Dr. Jorge Cooper @ Jul 13 2020 4:17PM
[2020-07-13 16:46] VITALS: BP 147/90; PULSE 87
== END 2020-07-13 16:47 | disposition home or self-care (01) ==
LOC: MW.ED 14:48
DX: S86.911A Strain of unspecified muscle(s) and tendon(s) at lower leg level, right leg, initial encounter (principal); E78.00 Pure hypercholesterolemia, unspecified; I10 Essential (primary) hypertension; K21.9 Gastro-esophageal reflux disease without esophagitis; E03.9 Hypothyroidism, unspecified; E66.9 Obesity, unspecified; Z68.39 Body mass index [BMI] 39.0-39.9, adult; Z86.718 Personal history of other venous thrombosis and embolism; Z88.2 Allergy status to sulfonamides; Z79.899 Other long term (current) drug therapy; W18.30XA Fall on same level, unspecified, initial encounter
CPT/HCPCS: 36415; 73502-26-RT; 73502-RT; 80053; 85025; 85610; 93971-26-RT; 93971-RT; 99283; 99284-25